=== PATIENT | male | born 1955 | race Caucasian/White ===

== ENCOUNTER → 2017-08-16 | Outpatient (CLI) | payer OTHER ==
--- NOTE | 2017-08-16 12:52 | NM ---
EXAMINATION TYPE: NM bone 3 phase DATE OF EXAM: 08/16/2017 COMPARISON: NONE HISTORY: Pain in the mandible Triple phase bone scintigraphy was performed following the injection of24.4 mCi Tc 99m MDP. Immediat e images and 3 hours post injection images acquired. FINDINGS: There is slightly asymmetric flow to the left mandible. Slight asymmetric soft tissue uptake noted. D elayed imaging demonstrates increased uptake along the entire left mandible. IMPRESSION: Findings are nonspecific given the patient's had previous surgery. There is extensive uptake througho ut the left mandible extending to the level of the chin. Could be postsurgical although given the upt natalio other etiologies including infection or trauma would be in the differential diagnosis. Recommend follow-up CT scan
== END | disposition home or self-care (01) ==
LOC: RADNMMAIN 07:34
PROVIDERS: ATTEND Thoracic Surgery (Cardiothoracic Vascular Surgery)
DX: R93.7 Abnormal findings on diagnostic imaging of other parts of musculoskeletal system (principal); E63.8 Other specified nutritional deficiencies
CPT/HCPCS: 78315; A9503